=== PATIENT | male | born 1940 | race Caucasian/White ===

== ENCOUNTER 2017-05-28 08:14 | Day surgery (SDC) | payer MEDICARE ==
[~2017-05-28] VITALS: Ht 172.7 cm; Wt 76.2 kg
[~2017-05-28 08:14] MED LIST: ADULT ASPIRIN E81 MG PO; ALLERGY RELF10 M1 PO; ASPIRIN EC81 MG PO; COQ-1010 MG PO; LISINOPRIL20 M1 PO; LISINOPRIL20 MG PO; LORATADINE10 M1 PO; MAGNESIUM-OX400 MG PO; MENS 50+ PO; MOBIC7.5 M1 PO; PRAVASTATIN SOD20 MG PO; PRILOSEC10 MG PO; PRILOSEC20 MG PO; PROVENTIL HFA IN; ROSUVASTATIN CAL5 MG PO; VERAPAMIL240 MG PO
[2017-05-28 10:24] VITALS: BP 143/63
== END 2017-05-28 10:55 | disposition home or self-care (01) ==
LOC: ENDO 08:14
PROVIDERS: ATTEND Surgery
PROC: 0DJD8ZZ Inspection of Lower Intestinal Tract, Via Natural or Artificial Opening Endoscopic (ICD-10-PCS; principal; 2017-05-28)
DX: Z12.11 Encounter for screening for malignant neoplasm of colon (principal)

== ENCOUNTER 2018-09-16 07:53 | Day surgery (SDC) | payer MEDICARE ==
[~2018-09-16] VITALS: Ht 172.7 cm; Wt 78.0 kg
[~2018-09-16 07:53] MED LIST changes: +ACETAMIN325 MG PO; +COZAAR100 MG PO; +MELATONIN PO
[2018-09-16 09:45] VITALS: BP 118/56
== END 2018-09-16 09:57 | disposition home or self-care (01) ==
LOC: ENDO 07:53 → PO 10:15 → ORM 10:15
PROVIDERS: ATTEND Surgery
PROC: 0DB58ZX Excision of Esophagus, Via Natural or Artificial Opening Endoscopic, Diagnostic (ICD-10-PCS; principal; 2018-09-16)
DX: K22.70 Barrett's esophagus without dysplasia (principal); K21.0 Gastro-esophageal reflux disease with esophagitis; K44.9 Diaphragmatic hernia without obstruction or gangrene

== ENCOUNTER 2021-08-18 02:41 | Emergency (ER) | payer MEDICARE ==
[~2021-08-18] VITALS: Ht 170.2 cm; Wt 74.3 kg
[2021-08-18 03:14] LABS: IMMATURE GRANULOCYTES 0.3 % (0.0-5.0); MEAN CORPUSCULAR HGB 33.5 pG CALC (26.0-32.0); MEAN CORPUSCULAR HGB CONC 32.3 g/dL CAL (32.0-36.0); NEUT# 6.37 thou/uL (1.82-7.42); RED BLOOD COUNT 3.1 mill/uL (4.70-6.10); RED CELL DISTRI WIDTH 12.2 % (11.5-15.5)
[2021-08-18] MEDS ORDERED: MEDDOSEPAK PO (03:14)
[2021-08-18] MEDS ORDERED: VITAMIN D1000 UNI2 PO (03:14)
[2021-08-18 03:16] LABS: HEMATOCRIT 32.2 % (39.0-50.0); HEMOGLOBIN 10.4 g/dl (14.0-18.0)
[2021-08-18 03:17] LABS: MEAN CELL VOLUME 103.9 fL CALC (80.0-100.0)
[2021-08-18 03:28] LABS: ALBUMIN 3.5 g/dL (3.2-5.0); CREATININE 1.4 mg/dL (0.7-1.3); TOTAL PROTEIN 6.4 g/dL (6.3-8.2)
[2021-08-18 03:29] LABS: BILIRUBIN, TOTAL 0.8 mg/dL (0.0-1.4); POTASSIUM 3.7 mmol/l (3.5-5.1)
[2021-08-18] MEDS ORDERED: ASPIRIN81 MG PO (03:58)
[2021-08-18] MEDS ORDERED: DAPSONE100 MG PO (03:59)
[2021-08-18 04:45] LABS: ACT PARTIAL THROMBO TIME 26.5 SECONDS (20.0-32.5); INTERNATIONAL NORMALIZED RATIO 1.2 RATIO (0.7-1.3); PROTHROMBIN TIME 12.3 SECONDS (9.0-12.5)
[2021-08-18 05:10] VITALS: BP 136/75
== END 2021-08-18 05:15 | disposition short-term general hospital (02) ==
LOC: ED 02:41
PROVIDERS: Emergency Medicine
DX: J18.9 Pneumonia, unspecified organism (principal); I11.0 Hypertensive heart disease with heart failure; I50.9 Heart failure, unspecified; R79.89 Other specified abnormal findings of blood chemistry; I25.10 Atherosclerotic heart disease of native coronary artery without angina pectoris; E78.00 Pure hypercholesterolemia, unspecified; C85.90 Non-Hodgkin lymphoma, unspecified, unspecified site; Z95.820 Peripheral vascular angioplasty status with implants and grafts; Z20.822 Contact with and (suspected) exposure to COVID-19
CPT/HCPCS: J1644

== ENCOUNTER 2023-05-09 06:32 | Emergency (ER) | payer MEDICARE ==
[2023-05-09] VITALS (11 sets, daily range): BP systolic 127–165; BP diastolic 58–78
[~2023-05-09] VITALS: Ht 170.2 cm; Wt 72.5 kg
[~2023-05-09 06:32] MED LIST changes: +ASPIRIN81 MG PO; +DAPSONE100 MG PO; +MEDDOSEPAK PO; +VITAMIN D1000 UNI2 PO
[2023-05-09] MEDS ORDERED: PLAVIX75 MG PO (06:58)
[2023-05-09] MEDS ORDERED: BUMETANIDE1 MG PO (06:59)
[2023-05-09] MEDS ORDERED: DIOVAN40 MG PO (07:03)
[2023-05-09] MEDS ORDERED: ZETIA10 MG PO (07:03)
[2023-05-09] MEDS ORDERED: OMEPRAZOLE DR40 MG PO (07:04)
[2023-05-09] MEDS ORDERED: LIPITOR80 M1 PO (07:05)
[2023-05-09] MEDS ORDERED: VITAMIN D325 MCG PO (07:05)
[2023-05-09] MEDS ORDERED: ALL DAY ALLG10 MG PO (07:06)
[2023-05-09] MEDS ORDERED: ARICEPT10 MG PO (07:06)
[2023-05-09] MEDS ORDERED: TOPROL XL25 M1 PO (07:07)
[2023-05-09 07:20] LABS: BASO% 0.2 % (0-3); IMMATURE GRANULOCYTES 1.4 % (0.0-5.0); LYMPH% 11.7 % (15-41); MEAN CELL VOLUME 98.3 fL CALC (80.0-100.0); MEAN CORPUSCULAR HGB 32.4 pG CALC (26.0-32.0); MONO% 10.2 % (2-13); NEUT# 6.99 thou/uL (1.82-7.42); NEUT% 76.5 % (42-76); RED BLOOD COUNT 4.1 mill/uL (4.70-6.10); RED CELL DISTRI WIDTH 12.1 % (11.5-15.5)
[2023-05-09 07:21] LABS: HEMATOCRIT 40.3 % (39.0-50.0); HEMOGLOBIN 13.3 g/dl (14.0-18.0)
[2023-05-09 07:41] LABS: ALBUMIN 3.8 g/dL (3.2-5.0); BILIRUBIN, TOTAL 0.6 mg/dL (0.2-1.3); CREATININE 1.6 mg/dL (0.7-1.3); POTASSIUM 4.2 mmol/l (3.5-5.1); TOTAL PROTEIN 6.4 g/dL (6.3-8.2)
[2023-05-09 07:56] LABS: URINE BILIRUBIN - DIPSTICK Negative (NEGATIVE); URINE BLOOD DIPSTICK Small (NEGATIVE); URINE GLUCOSE - DIPSTICK Negative (NEGATIVE); URINE KETONE Negative (NEGATIVE); URINE LEUK ESTERASE Negative (NEGATIVE); URINE NITRITE - DIPSTICK Negative (Negative); URINE PROTEIN - DIPSTICK 100 mg/dL (NEG-TRACE); URINE UROBILINOGEN - DIPSTICK 0.2 E.U./dL (0.2)
[2023-05-09 07:57] LABS: URINE COLOR Yellow
[2023-05-09] MEDS ORDERED: HYDROCO/APAP1 TA9 PO (08:14)
[2023-05-09] MEDS ORDERED: TAMSULOSIN0.4 MG PO (08:14)
[2023-05-09] MEDS ORDERED: MOTRIN400 MG/TAB PO (08:14)
[2023-05-09] MEDS ORDERED: OMNI-PAC300 MG PO (08:15)
== END 2023-05-09 09:08 | disposition home or self-care (01) ==
LOC: ED 06:32
PROVIDERS: Family Medicine
DX: N13.2 Hydronephrosis with renal and ureteral calculous obstruction (principal); I10 Essential (primary) hypertension; I25.10 Atherosclerotic heart disease of native coronary artery without angina pectoris; E78.00 Pure hypercholesterolemia, unspecified; C85.90 Non-Hodgkin lymphoma, unspecified, unspecified site